=== PATIENT | female | born 1950 | race Caucasian/White ===

== ENCOUNTER 2018-08-03 08:20 | Day surgery (SDC) | payer MEDICARE, OTHER ==
[~2018-08-03] VITALS: Ht 165.1 cm; Wt 63.5 kg
[~2018-08-03 08:20] MED LIST: ADULT LOW DOSE81 MG PO; ALLERGY RELIE15.8 ML NS; AMITRIPTYLINE H10 MG PO; AMLODIPINE BES2.5 MG PO; BLACK COHOSH540 MG PO; FOSAMAX70 MG PO; GABAPENTIN100 MG PO; K-TAB10 MEQ PO; LEVOTHYROXINE50 MCG PO; MACROBID 100 M100 MG PO; MELOXICAM15 MG PO; NORCO 7.5-3251 EACH PO; NYSTATIN100000 UN1 PO; PRAVACHOL80 MG PO; PRILOSEC20 MG PO; REQUIP1 MG PO; RESTORIL30 MG PO; TYLENOL EXTRA500 MG PO; ULTRAM50 MG PO; ZOLOFT100 MG PO
--- NOTE | 2018-08-03 10:28 | NUR ---
08/03/18 1027 Tarah Limon 1018 PATIENT ARRIVES TO PACU AWAKE BUT DROWSY. RESP EVEN AND UNLABORED, NC AT 2 LITERS. DENIES PAIN. 1020 NC OFF. 1025 PATIENT SITTING UP DRINKING APPLE JUICE. DENTURES GIVEN BACK TO PATIENT. DENIES PAIN OR NAUSEA.
--- NOTE | 2018-08-03 16:42 | OR ---
[facility] [address], [place] [address] Signed DATE OF OPERATION: 08/03/2018 SURGEON: Hieu Sesay MD PREOPERATIVE DIAGNOSES: 1. Paternal grandmother with colon cancer in her 70s. 2. Long history of constipation, diarrhea, generalized abdominal pain, gas, and bloating following a cholecystectomy. POSTOPERATIVE DIAGNOSES: 1. 3 mm rectal polyps at 7 cm. 2. Minimal sigmoid diverticulosis. 3. Tiny internal anal skin tag. PROCEDURE PERFORMED: Colonoscopy with hot biopsy. ESTIMATED BLOOD LOSS: None. INDICATIONS: Bianca is a 67-year-old female, asked to see me for a followup colonoscopy. She explained that her paternal grandmother had colon cancer somewhere in her early 70s. Bianca had her gallbladder out years ago and she does suffer with intermittent constipation diarrhea along with generalized abdominal pain gas and bloating. She spoke of a negative colonoscopy in 2007. In the meantime, she thinks she is at her baseline. I met with Bianca in the office and gave her a pamphlet on colonoscopy. We reviewed the nature of the test along with the risks including, but not limited to gas bloating, crampy abdominal pain, bleeding, perforation, requiring surgery, and missed diagnosis. We also discussed the need for IV conscious sedation she had expressed understanding and wished to proceed. PROCEDURE NOTE: Bianca was taken into the endoscopy suite and placed in the left lateral decubitus position. She was given a total of 9 mg of Versed and 150 mcg of fentanyl. A digital rectal exam was performed and this was unremarkable. The adult colonoscope was introduced and advanced under direct visualization of camera. Bianca did have some discomfort with that and we had to add additional Versed and fentanyl along with some abdominal compression. She is not particularly difficult the scope from a technical standpoint. The scope passed into the cecum itself. Her prep was good. There was some Electronically Signed By: HIEU SESAY MD 08/03/18 1642 PATIENT NAME: BIANCA WREN OPERATIVE REPORT DATE OF : 50 REPORT #: [id number] PHYSICIAN: HIEU SESAY MD PCP: SUMIT RODGERS DO REPORT IS CONFIDENTIAL AND NOT TO BE RELEASED WITHOUT AUTHORIZATION [facility] [address], [place] [address] Signed liquid stool to be suctioned out. We took pictures throughout for photodocumentation. We saw just a few moderate-sized diverticula in the sigmoid colon. No polyps in the colon. The rectum had several tiny polyps in the colon. We removed that easily with hot biopsy forceps. Upon retroflexion of scope she had just a tiny internal anal skin tag. After this, the gas was suctioned out and the colonoscope removed. Bianca tolerated the procedure quite well. RECOMMENDATIONS: I will see Bianca back in my office in 7 to 14 days to review her results. She has been on a 10 year rotation despite her paternal grandmother's history of colon cancer. If she has recall of the procedure, she could consider propofol in the future. Hieu Sesay MD ALB/MODL /[id number] cc: MD Hieu Marquez MD Robert C Quackenbush, MD Arian Kargar, DO Glyn Marsh, MD Copies: JEEVAN PATEL MD,HIEU BARRERA,SUMIT MOLINA MD, DO ~ Electronically Signed By: HIEU SESAY MD 08/03/18 1642 PATIENT NAME: BIANCA WREN OPERATIVE REPORT DATE OF : 50 REPORT #: [id number] PHYSICIAN: HIEU SESAY MD PCP: SUMIT RODGERS DO REPORT IS CONFIDENTIAL AND NOT TO BE RELEASED WITHOUT AUTHORIZATION
== END 2018-08-03 10:55 | disposition home or self-care (01) ==
LOC: DS 08:20 → OPS 08:20 → DS 09:45 → OPS 10:55
PROVIDERS: Colon & Rectal Surgery
PROC: 0DBP8ZZ Excision of Rectum, Via Natural or Artificial Opening Endoscopic (ICD-10-PCS; principal; 2018-08-03 09:45)
DX: K62.1 Rectal polyp (principal); K57.30 Diverticulosis of large intestine without perforation or abscess without bleeding; K64.4 Residual hemorrhoidal skin tags; E78.00 Pure hypercholesterolemia, unspecified; E03.9 Hypothyroidism, unspecified; M19.90 Unspecified osteoarthritis, unspecified site; G89.4 Chronic pain syndrome; Z80.0 Family history of malignant neoplasm of digestive organs; Z90.49 Acquired absence of other specified parts of digestive tract; Z98.890 Other specified postprocedural states; Z87.891 Personal history of nicotine dependence; Z88.5 Allergy status to narcotic agent; Z88.8 Allergy status to other drugs, medicaments and biological substances; Z79.899 Other long term (current) drug therapy
CPT/HCPCS: 99153; G0500; J2250; J3010; J7120

== ENCOUNTER 2019-05-25 14:22 | Emergency (ER) | payer MEDICARE, OTHER ==
[~2019-05-25] VITALS: Ht 165.1 cm; Wt 51.7 kg
[~2019-05-25 14:22] MED LIST changes: +LYRICA25 MG PO; +MIRTAZAPINE7.5 MG PO
[2019-05-25] MEDS ORDERED: ALBUTEROL2.5 MG/3 M INH (19:10)
--- NOTE | 2019-05-25 20:57 | EKG ---
[facility] [address] [facility] [place] [address] Signed Normal sinus rhythm Cannot rule out Anteroseptal infarct , age undetermined Abnormal ECG No previous ECGs available Confirmed by MARJAN PEDROZA MD ([id number]) on 05/25/2019 8:57:22 PM Electronically Signed By: MARJNA PEDROZA MD 05/25/192056 PATIENT NAME: BIANCA WREN Electrocardiogram DATE OF : 50 PHYSICIAN: MARJAN PEDROZA MD REPORT #: [id number] REPORT IS CONFIDENTIAL AND NOT TO BE RELEASED WITHOUT AUTHORIZATION
--- NOTE | 2019-05-26 09:44 | NUR ---
FAXED CHART NOTES TO [facility], THESE INCLUDE FACESHEET, ER NOTES AND SUMMARY, AND RT QUALIFIER. RECIEVED FAX CONFIRMATION.
== END 2019-05-25 19:26 | disposition home or self-care (01) ==
LOC: ED 14:22
DX: C78.00 Secondary malignant neoplasm of unspecified lung (principal); C15.9 Malignant neoplasm of esophagus, unspecified; I10 Essential (primary) hypertension; E03.9 Hypothyroidism, unspecified; K21.9 Gastro-esophageal reflux disease without esophagitis; F41.9 Anxiety disorder, unspecified; Z87.891 Personal history of nicotine dependence; Z88.8 Allergy status to other drugs, medicaments and biological substances; Z88.5 Allergy status to narcotic agent; Z79.899 Other long term (current) drug therapy
CPT/HCPCS: 71260; 80053; 84484; 85025; 93005; 93010; 94761; 99284-25; Q9967